=== PATIENT | male | born 1995 | race Caucasian/White ===

== ENCOUNTER 2023-02-18 16:22 | Outpatient (CLI) | payer MEDICAID, SELFPAY ==
[2023-02-18 16:12] LABS: Basophils # 0.1 K/mm3 (0-0.2); Basophils % 0.8 % (0.1-2.0); Eosinophils # 0.5 K/mm3 (0.0-0.4); Eosinophils % 5.6 % (0.1-12.0); Hematocrit 45.5 % (42.0-52.0); Hemoglobin 14.8 g/dL (14.1-18.0); Lymphocytes # 3.5 K/mm3 (0.7-4.5); Lymphocytes % 37.1 % (10-50); Mean Corpuscular HGB Conc 32.5 g/dL (31.8-35.4); Mean Corpuscular Hemoglobin 31.6 pg (27.0-31.2); Mean Corpuscular Volume 97.1 fl (80-94); Mean Platelet Volume 8.4 fl (7.4-10.4); Monocytes # 0.5 K/mm3 (0.1-1.0); Monocytes % 5.7 % (1.7-9.3); Neutrophils # 4.8 K/mm3 (1.8-7.8); Neutrophils % 50.8 % (37.0-80.0); Platelet Count 325 K/mm3 (142-424); Red Blood Count 4.68 M/mm3 (4.60-6.20); Red Cell Distribution Width 12.8 % (11.5-17.5); White Blood Count 9.4 K/mm3 (4.8-10.8)
[2023-02-18 16:20] LABS: Chloride 106 mmol/L (98-107); Potassium 4.6 mmoL/L (3.5-5.1); Sodium 139 mmol/L (136-145)
[2023-02-18 16:22] LABS: Blood Urea Nitrogen 17 mg/dl (9-20); Estimated Glomerular Filt Rate 133 ml/min (>60); GFR (African American) 161 ML/MIN (>60)
[2023-02-18 16:23] LABS: Alanine Aminotransferase 25 U/L (12-78); Albumin Level 4.7 g/dl (3.5-5.0); Albumin/Globulin Ratio 1.7 (1.1-1.8); Alkaline Phosphatase 50 U/L (38-126); Anion Gap 11.6 mEq/L (5-15); Aspartate Amino Transferase 38 U/L (17-59); Bilirubin,Total 0.6 mg/dl (0.2-1.3); Calcium 8.9 mg/dl (8.4-10.2); Carbon Dioxide 26 mmol/L (22.0-30.0); Globulin 2.7 g/dL (1.3-3.2); Glucose 94 mg/dl (74-100); Total Protein,Serum 7.4 g/dl (6.3-8.2)
[2023-02-18 16:30] LABS: C-Reactive Protein 0.6 mg/L (0-4)
[2023-02-18 16:54] LABS: Thyroid Stimulating Hormone 0.98 uIU/mL (0.465-4.68)
[2023-02-18 17:02] LABS: Erythrocyte Sedimentation Rate 5 mm/hr (0-15)
[2023-02-27 08:53] LABS: Antinuclear Antibodies (ANA) Negative
== END 2023-02-18 23:59 ==
LOC: LAB.DROPOF 16:22
PROVIDERS: PCP Nurse Practitioner Family; Visit Provider Nurse Practitioner Family
DX: R59.0 Localized enlarged lymph nodes (principal)
CPT/HCPCS: 80053; 84443; 85025; 85651; 86038; 86140

== ENCOUNTER 2023-03-07 13:01 | Outpatient (CLI) | payer MEDICAID, SELFPAY ==
--- NOTE | 2023-03-07 13:05 | US_ITS ---
FINAL REPORT CLINICAL HISTORY: lymphadenopathy-- palp areas FINDINGS: Limited sonographic images of the left lower leg were obtained. There is a 0.8 cm echogenic focus in the subcutaneous tissues in the anterior distal thigh, may represent a lipoma. IMPRESSION: Findings may represent a lipoma. Reviewed, Interpreted and Dictated by Zach Senior MD Transcribed by Rosie Samuels Authenticated and [facility]
--- NOTE | 2023-03-07 13:05 | US_ITS ---
FINAL REPORT CLINICAL HISTORY: lymphadenopathy-- palp areas rt lower leg FINDINGS: Limited sonographic images of the right lower leg were obtained. There is a 1.2 x 2.3 cm echogenic focus in the subcutaneous tissues in the anterior distal thigh, may represent a lipoma. IMPRESSION: Findings may represent a lipoma. Reviewed, Interpreted and Dictated by Zach Senior MD Transcribed by Rosie Samuels Authenticated and [facility]
== END 2023-03-07 23:59 ==
LOC: RAD 13:01
PROVIDERS: PCP Nurse Practitioner Family; Visit Provider Nurse Practitioner Family
DX: R59.1 Generalized enlarged lymph nodes (principal)
CPT/HCPCS: 76882